=== PATIENT | male | born 1955 | race Caucasian/White ===

== ENCOUNTER 2018-08-23 22:10 | Emergency (ER) | payer OTHER ==
[~2018-08-23] VITALS: Ht 182.9 cm; Wt 91.9 kg
[2018-08-23 22:13] VITALS: Ht 182.9 cm; Wt 91.9 kg
[2018-08-23 23:40] LABS: CALCIUM 9.4 mg/dL (8.5-10.1); CARBON DIOXIDE 26.1 mmol/L (21-32); CHLORIDE SERUM 106 mmol/L (98-107); GFR1 > 60 mL/min; GLUCOSE SERUM 112 mg/dL (74-106); SODIUM SERUM 140 mmol/L (136-145)
[2018-08-23 23:41] LABS: BASOPHIL % 0.3 % (0-2); PLATELET COUNT 339 x10^3mcL (130-400)
[2018-08-23 23:45] LABS: ALKALINE PHOSPHATASE 70 U/L (46-116); ALT/SGPT 50 U/L (16-63); AST/SGOT 24 U/L (15-37); BILIRUBIN TOTAL 1.1 mg/dL (0.20-1.00); TOTAL PROTEIN, SERUM 7.9 g/dL (6.4-8.2)
[2018-08-24 00:20] VITALS: BP 151/94
== END 2018-08-24 00:20 | disposition home or self-care (01) ==
LOC: ED 22:10
PROVIDERS: Emergency Medicine
DX: I10 Essential (primary) hypertension (principal); E78.5 Hyperlipidemia, unspecified
CPT/HCPCS: 36415